=== PATIENT | male | born 1975 | race Caucasian/White ===

== ENCOUNTER 2018-05-01 20:39 | Emergency (ER) | payer MEDICARE ==
[~2018-05-01] VITALS: Ht 180.3 cm; Wt 96.2 kg
[2018-05-01 20:59] VITALS: BP 164/89
[2018-05-01] MEDS ORDERED: IBUPROFEN 600 MG TABLET. PO ONE (21:30)
--- NOTE | 2018-05-01 21:59 | PHYS DOC ---
Past Medical History Past Medical History: Hypertension, Other Additional Past Medical Histor: CEREBRAL PALSY Past Surgical History: No Surgical History Alcohol Use: Occasionally Drug Use: None Adult General Chief Complaint Chief Complaint: ANKLE PROBLEM HPI HPI Patient is a 43 year old Male who presents with without much today and stepped off a curb wrong and twisted his right ankle. This happened around 1730 tonight. Patient rates pain a 6 out of 10. Patient is ambulatory. There is swelling to the inner top area of the right foot around to the right side of the ankle. Patient can wiggle his toes. Patient can also is limited range of motion with his ankle due to pain. Patient states he did not feel a pop or hear a pop. She states he did not take any pain medications and would like some ibuprofen. Review of Systems Review of Systems Constitutional: Denies fever or chills [] Eyes: Denies change in visual acuity, redness, or eye pain [] HENT: Denies nasal congestion or sore throat [] Respiratory: Denies cough or shortness of breath [] Cardiovascular: No additional information not addressed in HPI [] GI: Denies abdominal pain, nausea, vomiting, bloody stools or diarrhea [] : Denies dysuria or hematuria [] Musculoskeletal: Denies back pain or Right ankle joint pain [] Integument: Denies rash or skin lesions [] Neurologic: Denies headache, focal weakness or sensory changes [] Endocrine: Denies polyuria or polydipsia [] All other systems were reviewed and found to be within normal limits, except as documented in this note. Current Medications Current Medications Current Medications Medications (Trade) Dose Ordered Sig/[facility] Start Time Stop Time Status Last Admin Dose Admin Ibuprofen (Motrin) 600 mg 1X ONCE 05/01/18 21:30 05/01/18 21:31 DC 05/01/18 21:26 600 MG Allergies Allergies Allergies Coded Allergies Type Severity Reaction Last Updated Verified No Known Drug Allergies 05/01/18 No Physical Exam Physical Exam Constitutional: Well developed, well nourished, no acute distress, non-toxic appearance. [] HENT: Normocephalic, atraumatic, bilateral external ears normal, oropharynx moist, no oral exudates, nose normal. [] Eyes: PERRLA, EOMI, conjunctiva normal, no discharge. [] Neck: Normal range of motion, no tenderness, supple, no stridor. [] Cardiovascular:Heart rate regular rhythm, no murmur [] Lungs & Thorax: Bilateral breath sounds clear to auscultation [] Abdomen: Bowel sounds normal, soft, no tenderness, no masses, no pulsatile masses. [] Skin: Warm, dry, no erythema, no rash. [] Back: No tenderness, no CVA tenderness. [] Extremities: Right ankle tenderness and bruising, no cyanosis, no clubbing, ROM intact, no edema. [] Neurologic: Alert and oriented X 3, normal motor function, normal sensory function, no focal deficits noted. [] Psychologic: Affect normal, judgement normal, mood normal. [] Current Patient Data Vital Signs Vital Signs Date Time Temp Pulse Resp B/P (MAP) Pulse Ox O2 Delivery O2 Flow Rate FiO2 05/01/18 20:59 98.2 99 16 164/89 (114) 97 Room Air 98.2 EKG EKG [] Radiology/Procedures Radiology/Procedures Right ankle Impressions: No acute findings and read by Dr. Austin Course & Med Decision Making Course & Med Decision Making Patient is a 43 year old Male who presents with without much today and stepped off a curb wrong and twisted his right ankle. This happened around 1730 tonight. Patient rates pain a 6 out of 10. Patient is ambulatory. There is swelling to the inner top area of the right foot around to the right side of the ankle. Patient can wiggle his toes. Patient can also is limited range of motion with his ankle due to pain. Patient states he did not feel a pop or hear a pop. She states he did not take any pain medications and would like some ibuprofen. Patient is alert and oriented. He has history of cerebral palsy and a right heel he surgery and a right arm surgery. He does not have any medications daily. He has no known drug allergies. Patient has a present pedal pulse in the affected right foot and ankle. X-ray shows no acute findings of his right ankle and is given an air splint for his ankle. Patient should follow- up with his primary care as soon as possible take ibuprofen for pain. [] Dragon Disclaimer Dragon Disclaimer This electronic medical record was generated, in whole or in part, using a voice recognition dictation system. Departure Departure Impression: Primary Impression: Ankle sprain Disposition: HOME, SELF-CARE Condition: STABLE Referrals: NO PCP (PCP) Patient Instructions: Ankle Sprain Additional Instructions: Follow-up her primary care provider soon as possible. Take ibuprofen for pain and use ice. Problem Qualifiers Primary Impression: Ankle sprain Encounter type: initial encounter Involved ligament of ankle: unspecified ligament Laterality: right Qualified Codes: S93.401A - Sprain of unspecified ligament of right ankle, initial encounter ELLIOTT CLINTON [employer] May 01, 2018 21:59
--- NOTE | 2018-05-02 00:08 | RAD ---
Indication:FALL, INJURY TECHNIQUE: 3 views of the right ankle COMPARISON:None FINDINGS/ impression: No acute fracture or dislocation. Ankle mortise is intact. Large calcific densities are seen in the posterior soft tissue of the ankle along the Achilles tendon, nonspecific and may represent calcific tendinitis. Mild midfoot arthritis. Electronically signed by: Ronan Raya DO (05/02/2018 12:05 AM) [facility]
== END 2018-05-01 22:09 | disposition home or self-care (01) ==
LOC: ER 20:39
DX: S93.401A Sprain of unspecified ligament of right ankle, initial encounter (principal); I10 Essential (primary) hypertension; W10.1XXA Fall (on)(from) sidewalk curb, initial encounter; Y93.89 Activity, other specified; Y92.89 Other specified places as the place of occurrence of the external cause; Y99.8 Other external cause status
CPT/HCPCS: 73610; 99284

== ENCOUNTER 2018-05-05 21:00 | Emergency (ER) | payer MEDICARE ==
[~2018-05-05] VITALS: Ht 180.3 cm; Wt 96.2 kg
[2018-05-05 21:42] VITALS: BP 149/97
[2018-05-05] MEDS ORDERED: LIDOCAINE/EPI/TETRACAINE TOPICAL GEL 3 ML. TP ONE (22:00)
[2018-05-05] MEDS ORDERED: LIDOCAINE 1%/EPI 1:100,000 20 ML VIAL. INJ ONE (22:00)
--- NOTE | 2018-05-05 22:27 | PHYS DOC ---
Past Medical History Past Medical History: Hypertension, Other Additional Past Medical Histor: CEREBRAL PALSY Past Surgical History: No Surgical History Alcohol Use: Occasionally Drug Use: None Adult General Chief Complaint Chief Complaint: LACERATION/AVULSION [facility] HPI Patient is a 43 year old male who presents with laceration to his left mitchell. The patient states that he was cooking this evening when he accidentally knocked a knife off of the counter. He states that he noticed the bleeding on his mitchell. He states it was dripping into his shoe. He presented directly to the emergency department. He states that he is up-to-date on his tetanus status. He denies any other injury. Review of Systems Review of Systems Constitutional: Denies fever or chills [] Eyes: Denies change in visual acuity, redness, or eye pain [] HENT: Denies nasal congestion or sore throat [] Respiratory: Denies cough or shortness of breath [] Cardiovascular: No additional information not addressed in HPI [] GI: Denies abdominal pain, nausea, vomiting, bloody stools or diarrhea [] : Denies dysuria or hematuria [] Musculoskeletal: Denies back pain or joint pain [] Integument: See history of present illness Neurologic: Denies headache, focal weakness or sensory changes [] Endocrine: Denies polyuria or polydipsia [] All other systems were reviewed and found to be within normal limits, except as documented in this note. Current Medications Current Medications Current Medications Medications (Trade) Dose Ordered Sig/[facility] Start Time Stop Time Status Last Admin Dose Admin Ibuprofen (Motrin) 600 mg 1X ONCE 05/05/18 23:00 05/05/18 23:00 DC Lidocaine/ Epinephrine (LIDOCAINE 1%-EPI 1:100,000 Multi-Dose) 20 ml 1X ONCE 05/05/18 22:00 05/05/18 22:01 DC 05/05/18 21:49 20 ML Lidocaine/ Epinephrine (Let Topical) 3 ml 1X ONCE 05/05/18 22:00 05/05/18 22:01 DC 05/05/18 21:49 3 ML Allergies Allergies Allergies Coded Allergies Type Severity Reaction Last Updated Verified No Known Drug Allergies 05/01/18 No Physical Exam Physical Exam Constitutional: Well developed, well nourished, no acute distress, non-toxic appearance. [] Cardiovascular:Heart rate regular rhythm, no murmur [] Lungs & Thorax: Bilateral breath sounds clear to auscultation [] Abdomen: Bowel sounds normal, soft, no tenderness, no masses, no pulsatile masses. [] Skin: 1 cm laceration to the left mitchell Back: No tenderness, no CVA tenderness. [] Extremities: No tenderness, no cyanosis, no clubbing, ROM intact, no edema. [] Neurologic: Alert and oriented X 3, normal motor function, normal sensory function, no focal deficits noted. [] Psychologic: Affect normal, judgement normal, mood normal. [] Current Patient Data Vital Signs Vital Signs Date Time Temp Pulse Resp B/P (MAP) Pulse Ox O2 Delivery O2 Flow Rate FiO2 05/05/18 21:42 98.5 73 20 149/97 (114) 98 Room Air 98.5 EKG EKG [] Radiology/Procedures Radiology/Procedures []Laceration Repair by me: Anesthesia: 1% lidocaine epi locally Location: Left mid mitchell Tendon/Joint/Nerves: No injury Foreign body: None detected after copious irrigation and exploration Technique: 3 Simple Interrupted Sutures Complexity: No subcutaneous sutures/mucosal repair/edge excision Post Closure Length: 1 cm Patient's bleeding was easily controlled in the department and there is no indication of anemia. No evidence of compartment syndrome, neurologic injury, vascular injury, open joint, tendon laceration, or foreign body. Patient is appropriate for outpatient follow up. 48 hour wound check. Scar minimization instructions given. Course & Med Decision Making Course & Med Decision Making Pertinent Labs and Imaging studies reviewed. (See chart for details) [] Dragon Disclaimer Dragon Disclaimer This electronic medical record was generated, in whole or in part, using a voice recognition dictation system. Departure Departure Impression: Primary Impression: Laceration Disposition: 01 HOME, SELF-CARE Condition: STABLE Referrals: NO PCP (PCP) Patient Instructions: Laceration Care, Adult Additional Instructions: Take ibuprofen or Tylenol for pain. Follow-up with your primary care provider in 7-10 days for removal of the sutures. If worsening return to the emergency department. Attending Signature Attending Signature I have reviewed the PA/DIE CASTING MACHINE MAINTAINER's note and plan of care. I was available for consultation as needed during the patient's visit in the emergency department. I agree with the clinical impression, plan, and disposition. KENYA MANCIA APRN May 05, 2018 22:27 ELAN RAMÍREZ DO May 10, 2018 09:51
--- NOTE | 2018-05-05 22:33 | RAD ---
Left tibia and fibula 2 views. HISTORY: Laceration to mitchell AP and lateral views were taken of the left tibia and fibula. There is soft tissue injury anteriorly. There is no fracture noted. There is no opaque foreign body noted. IMPRESSION: 1. Negative left tibia and fibula. Electronically signed by: Tuan Mejia MD (05/05/2018 10:30 PM) [id number]
[2018-05-05] MEDS ORDERED: IBUPROFEN 600 MG TABLET. PO ONE (23:00)
== END 2018-05-05 22:47 | disposition home or self-care (01) ==
LOC: ER 21:00
DX: S81.812A Laceration without foreign body, left lower leg, initial encounter (principal); I10 Essential (primary) hypertension; W26.0XXA Contact with knife, initial encounter; Y93.89 Activity, other specified; Y92.89 Other specified places as the place of occurrence of the external cause; Y99.8 Other external cause status
CPT/HCPCS: 12001; 73590; 99284; J3490